=== PATIENT | female | born 1965 | race African-American/Black ===

== ENCOUNTER 2019-01-29 18:15 | Emergency (ER) | payer OTHER ==
[~2019-01-29] VITALS: Ht 170.2 cm; Wt 86.2 kg
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
--- NOTE | 2019-01-29 18:45 | NUR ---
AMANDA WOOTEN PAC AT BEDSIDE
--- NOTE | 2019-01-29 18:58 | NUR ---
MADE PA AWARE OF BP: 170/107. PT ON CLONIDINE PATCH 0.2MG PLACED THIS MORNING. WILL CONTINUE TO MONITOR ORDERED.
--- NOTE | 2019-01-29 19:00 | NUR ---
MORNING NEWS ANCHOR AT BEDSIDE
--- NOTE | 2019-01-29 19:15 | NUR ---
REPORT GIVEN TO JOSHUA WETZEL FOR CLINT
[2019-01-29 19:30] VITALS: BP 165/109
--- NOTE | 2019-01-29 20:32 | NUR ---
PT ELOPED PRIOR TO RECEIVING DISCHARGE PAPERWORK. ER PA AWARE.
== END 2019-01-29 20:47 | disposition left against medical advice (07) ==
LOC: ER 18:37
DX: M25.531 Pain in right wrist (principal); M54.5 Low back pain; G89.29 Other chronic pain; I10 Essential (primary) hypertension; J43.9 Emphysema, unspecified; F17.200 Nicotine dependence, unspecified, uncomplicated; Z88.0 Allergy status to penicillin; Z88.6 Allergy status to analgesic agent; Z88.9 Allergy status to unspecified drugs, medicaments and biological substances; Z88.8 Allergy status to other drugs, medicaments and biological substances; W18.39XA Other fall on same level, initial encounter; Y93.89 Activity, other specified; Y92.89 Other specified places as the place of occurrence of the external cause; Y99.8 Other external cause status
CPT/HCPCS: 72100-TC; 73110